=== PATIENT | female | born 1990 | race Caucasian/White ===

== ENCOUNTER → 2019-10-15 | Outpatient (CLI) | payer BC ==
[~2019-10-15] MED LIST: Abilify2 MG PO; IBUP800 PO; OXYACE5T PO; Omeprazole20 M1 PO; Verotin-Gr Cap1 EACH PO; Zofran Odt4 MG SL
[2019-10-16 10:39] LABS: Candida species (DNA Probe) Negative (NEGATIVE); G. vaginalis (DNA Probe) Negative (NEGATIVE); T. vaginalis (DNA Probe) Negative (NEGATIVE)
== END | disposition home or self-care (01) ==
LOC: LAB SHORT 17:28 → LAB 17:28
PROVIDERS: Family Medicine
DX: N89.8 Other specified noninflammatory disorders of vagina (principal)
CPT/HCPCS: 87480; 87510; 87660

== ENCOUNTER → 2019-12-25 | Outpatient (CLI) | payer BC | END | disposition home or self-care (01) | LOC: LAB SHORT 16:21 → LAB 16:21 | DX: Z34.83 Encounter for supervision of other normal pregnancy, third trimester (principal); Z3A.36 36 weeks gestation of pregnancy | CPT/HCPCS: 87081; 87653 ==

== ENCOUNTER 2020-01-12 13:30 | Inpatient (IN) | payer BC ==
[~2020-01-12] VITALS: Ht 160 cm; Wt 86.0 kg
[2020-01-13] MEDS ORDERED: PRENATAL TABLE1 EAC2 PO (14:50)
[2020-01-13] MEDS ORDERED: FAMO40 PO (14:53)
[2020-01-13] MEDS ORDERED: FERROUS SULFAT325 M3 PO (14:53)
[2020-01-15 08:32] LABS: BASOPHILS ABSOLUTE AUTO 0.03 K/mm3 (0.00-0.23); BASOPHILS PERCENT AUTO 0 % (0-2); EOSINOPHILS ABSOLUTE AUTO 0.13 K/mm3 (0.00-0.68); EOSINOPHILS PERCENT AUTO 2 % (0-6); Hematocrit 35.8 % (33.0-51.0); IMMATURE GRAN ABSOLUTE AUTO 0.04 K/mm3 (0.00-0.10); IMMATURE GRAN PERCENT AUTO 1 % (0-1); LYMPHOCYTES ABSOLUTE AUTO 2.07 K/mm3 (0.84-5.20); LYMPHOCYTES PERCENT AUTO 24 % (21-46); MONOCYTES ABSOLUTE AUTO 0.92 K/mm3 (0.16-1.47); MONOCYTES PERCENT AUTO 11 % (4-13); Mean Corpuscular HGB 29.3 pg (26.0-34.0); Mean Corpuscular HGB Conc 33.5 g/dL (31.5-36.5); Mean Corpuscular Volume 87 fL (80-100); Mean Platelet Volume 10.4 fL (9.1-12.4); NEUTROPHILS ABSOLUTE AUTO 5.56 K/mm3 (1.96-9.15); NEUTROPHILS PERCENT AUTO 64 % (41-73); Platelet Count 242 K/mm3 (150-400); RDW Coefficient Variation 13.8 % (11.7-14.2); RDW Standard Deviation 43.9 fL (35.1-46.3); White Blood Cell Count 8.75 K/mm3 (4.00-11.30)
--- NOTE | 2020-01-15 10:37 | NUR ---
01/15/20 [facility] Jazmin Beasley VIABLE FEMALE NB BORN AT 1022, 9/9. CORD BLOOD SENT WITH KATRIN HUGGINS. CORD GASES SENT WITH MEL CHOUDHARY.
[2020-01-15 10:48] LABS: PCO2 Cord - Arterial 40.9 mmHg (40-50); PO2 Cord - Arterial 21.1 mmHg (16-20); pH Cord - Arterial 7.33 (7.28-7.35)
[2020-01-15 10:50] LABS: PCO2 Cord - Venous 36.2 mmHg (40-50); PO2 Cord - Venous 32.5 mmHg (28-32); pH Umbilical Cord - Venous 7.37 (7.26-7.35)
--- NOTE | 2020-01-15 12:30 | NUR ---
REPORT TAKEN FROM WM LANE RN
--- NOTE | 2020-01-15 12:38 | NUR ---
REPORT TO KATRIN HUGGINS.
--- NOTE | 2020-01-15 13:55 | NUR ---
REPORT TO ROHITH CARLSON RN
[2020-01-16 06:18] LABS: BASOPHILS ABSOLUTE AUTO 0.04 K/mm3 (0.00-0.23); BASOPHILS PERCENT AUTO 0 % (0-2); EOSINOPHILS ABSOLUTE AUTO 0.12 K/mm3 (0.00-0.68); EOSINOPHILS PERCENT AUTO 1 % (0-6); Hematocrit 31.8 % (33.0-51.0); Hemoglobin 10.5 g/dL (11.5-16.0); IMMATURE GRAN ABSOLUTE AUTO 0.06 K/mm3 (0.00-0.10); IMMATURE GRAN PERCENT AUTO 1 % (0-1); LYMPHOCYTES ABSOLUTE AUTO 1.37 K/mm3 (0.84-5.20); LYMPHOCYTES PERCENT AUTO 12 % (21-46); MONOCYTES ABSOLUTE AUTO 0.84 K/mm3 (0.16-1.47); MONOCYTES PERCENT AUTO 8 % (4-13); Mean Corpuscular HGB 29.2 pg (26.0-34.0); Mean Corpuscular Volume 88 fL (80-100); Mean Platelet Volume 10.5 fL (9.1-12.4); NEUTROPHILS ABSOLUTE AUTO 8.73 K/mm3 (1.96-9.15); NEUTROPHILS PERCENT AUTO 78 % (41-73); Platelet Count 219 K/mm3 (150-400); RDW Coefficient Variation 13.9 % (11.7-14.2); RDW Standard Deviation 44.7 fL (35.1-46.3); White Blood Cell Count 11.16 K/mm3 (4.00-11.30)
--- NOTE | 2020-01-16 10:55 | NUR ---
up to shower. tolerated ok. 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 hensley out.
[2020-01-17] MEDS ORDERED: Percocet 5-3251 EACH (10:57)
[2020-01-17] MEDS ORDERED: DOCU100 PO (10:57)
[2020-01-17] MEDS ORDERED: IBUP800 PO (10:57)
--- NOTE | 2020-01-17 11:45 | NUR ---
DISCHARGE HOME STABLE. VERBALIZES UNDERSTANDING OF DC INSTRUCTIONS AND FOLLOW UP APPOINTMENTS. NO QUESTIONS OR CONCERNS. CARING FOR SELF AND BABY INDEPENDANTLY.
== END 2020-01-17 11:38 | disposition home or self-care (01) | DRG 785 ==
LOC: BC 01-15 07:50
PROVIDERS: ADMIT Family Medicine
PROC: 0UT70ZZ Resection of Bilateral Fallopian Tubes, Open Approach (ICD-10-PCS; 2020-01-15)
PROC: 10D00Z1 Extraction of Products of Conception, Low, Open Approach (ICD-10-PCS; principal; 2020-01-15 10:00)
DX: O34.211 Maternal care for low transverse scar from previous cesarean delivery (principal); Z3A.39 39 weeks gestation of pregnancy; Z37.0 Single live birth; Z30.2 Encounter for sterilization
CPT/HCPCS: 36415; 82803; 85025; 85027; 85460; 86900; 86901; 88302; J0690; J1170; J1885; J2250; J2370; J2405; J2590; J2765; J3010; J7030; J7120

== ENCOUNTER → 2020-02-26 | Outpatient (CLI) | payer BC ==
[~2020-02-26] MED LIST changes: +DOCU100 PO; +FAMO40 PO; +FERROUS SULFAT325 M3 PO; +PRENATAL TABLE1 EAC2 PO; +Percocet 5-3251 EACH
[2020-02-27 10:26] LABS: Candida species (DNA Probe) Negative (NEGATIVE); G. vaginalis (DNA Probe) Negative (NEGATIVE); T. vaginalis (DNA Probe) Negative (NEGATIVE)
== END | disposition home or self-care (01) ==
LOC: LAB SHORT 16:13 → LAB 16:13
PROVIDERS: Family Medicine
DX: N89.8 Other specified noninflammatory disorders of vagina (principal)
CPT/HCPCS: 87070; 87205; 87480; 87510; 87660

== ENCOUNTER → 2021-09-01 | Outpatient (CLI) | payer BC ==
[2021-09-03 02:11] LABS: CHLAMYDIA TRACHOMATIS, NAA Negative (Negative)
== END ==
LOC: LAB SHORT 15:08
PROVIDERS: Nurse Practitioner Family
DX: Z11.3 Encounter for screening for infections with a predominantly sexual mode of transmission (principal); N39.0 Urinary tract infection, site not specified
CPT/HCPCS: 87086; 87491; 87591

== ENCOUNTER → 2021-09-07 | Outpatient (CLI) | payer OTHER | END | disposition home or self-care (01) | LOC: LAB SHORT 14:20 → LAB 14:20 | DX: R39.0 Extravasation of urine (principal) | CPT/HCPCS: 87086 ==

== ENCOUNTER 2021-12-26 06:13 | Day surgery (SDC) | payer OTHER ==
[~2021-12-26] VITALS: Ht 160 cm; Wt 60.7 kg
[2021-12-26] MEDS ORDERED: SUBVENITE PO (06:45)
--- NOTE | 2021-12-26 08:05 | NUR ---
History, Chart, Medications and Allergies reviewed before start of procedure.Patient confirms NPO status and agrees with scheduled surgery. Pre-Op teaching done. Pt verbalizes understanding. Pt forgot to do 2x chlorhexadine showers at home.
--- NOTE | 2021-12-26 09:20 | NUR ---
12/26/21 0920 Kuldip Sandoval DC NEAR END OF CASE WITH APPROXIMATELY 30 CC CLEAR YELLOW URINE
--- NOTE | 2021-12-26 13:12 | NUR ---
1045 arrived in room from pacu. c/o nausea
--- NOTE | 2021-12-26 14:15 | NUR ---
1050 ambulated to bathroom , tolerated fair. reports pressure and urge to void
--- NOTE | 2021-12-26 14:16 | NUR ---
1130 states poor relief from po pain meds, unwilling to wait for it to take effect , states roixcodone never worked for her in the past. dr joesph lamar
--- NOTE | 2021-12-26 17:02 | NUR ---
PATIENT INFORMED THAT NO VISITORS WILL BE ALLOWED ON THE UNIT TONIGHT, SO PATIENT OPTED TO BE TRANSFERED TO SURGICAL FLOOR. NURSING SUPERVISING DEPUTY NOTIFIED
--- NOTE | 2021-12-26 17:06 | NUR ---
1600 COUPONS GIVEN TO TO [place]. PATIENT CAN'T DECIDE IF SHE IS HUNGRY OR NAUSEATED
--- NOTE | 2021-12-26 17:08 | NUR ---
1700 OFFERED BOTH ORAL PAIN MEDS AND ZOFRAN TO PATIENT PATIENT UNABLE TO ANSWER QUESTIONS BECAUSE SHE WAS ON THE PHONE
--- NOTE | 2021-12-26 17:35 | NUR ---
1739 report called to surgical floor rn
--- NOTE | 2021-12-26 18:00 | NUR ---
PATIENT ARRIVED TO FLOOR VIA WC WITH WALLPAPER INSTALLER AND WITH WITH ALL PERSONAL POSSESSIONS. PT DENIED PAIN. DISCUSSED PT'S N&V AND DESIRE TO STAY OR DC, ENC PT TO GO HOME. PUT PT IN ROOM, SO PT CAN GET DRESSED.
--- NOTE | 2021-12-26 18:17 | NUR ---
DISCHARGE SUMMARY PT A&OX4, VSS/RA, N&V TREATED WITH IV ZOFRAN/SVETLANA SIPS OF H20, REPORTS PAIN 2/10 GAVE TORADOL PRIOR TO DC AND EDU NOT TO TAKE IBUPROFEN UNTIL 8 HOURS LATER; PAIN SCRIPT FILLED AT HOME, AMB INDEPENDENTLY. LEFT FLOOR VIA WC WITH MANUFACTURING MAINTENANCE MANAGER TO GO HOME WITH SPOUSE, WITH ALL PERSONAL POSSESSIONS. WILL REPORT TO ONCOMING NOC RN.
== END 2021-12-26 18:35 | disposition home or self-care (01) ==
LOC: ORSCMMR 06:13 → ORD 07:30 → EDSTATUS 07:30 → ORD 09:45 → OBS 10:55 → ORSCMMR 10:55 → BC 10:59 → ORSCMMR 10:59 → BC 17:49 → OBS 17:49 → SURS 17:51 → OBS 17:51 → SURS 18:35 → OBS 18:35 → BC 18:35 → ORSCMMR 18:35
PROVIDERS: Obstetrics & Gynecology
PROC: 8E0W4CZ Robotic Assisted Procedure of Trunk Region, Percutaneous Endoscopic Approach (ICD-10-PCS; 2021-12-26)
PROC: 0UT94ZZ Resection of Uterus, Percutaneous Endoscopic Approach (ICD-10-PCS; principal; 2021-12-26 07:30)
DX: N80.3 Endometriosis of pelvic peritoneum (principal); N94.5 Secondary dysmenorrhea; G89.29 Other chronic pain; D64.9 Anemia, unspecified; N94.10 Unspecified dyspareunia; Z91.018 Allergy to other foods; Z91.041 Radiographic dye allergy status; Z79.899 Other long term (current) drug therapy; Z98.890 Other specified postprocedural states; Z98.51 Tubal ligation status
CPT/HCPCS: 88305; A9270; J0690; J1100; J1170; J1885; J2250; J2405; J2704; J2765; J2795; J3010; J7120